=== PATIENT | male | born 1990 | race Hispanic/Latino ===

== ENCOUNTER 2021-01-31 22:03 | Emergency (ER) | payer BC, OTHER ==
[2021-02-01] MEDS ORDERED: NA CHLORIDE 0.9% 1,000 ML ONE (00:10)
[2021-02-01] MEDS ORDERED: ONDANSETRON 4 MG/2 ML VIAL ONE (00:10)
[2021-02-01] MEDS ORDERED: PANTOPRAZOLE 40 MG INJ ONE (00:10)
[2021-02-01 00:29] LABS: Basophils % 0.2 % (0-1.3); Hematocrit 42.2 % (39.6-49.0); Lymphocytes % 14.7 % (15.3-44.8); MPV 8.7 fL (7.6-11.3); RBC Red Blood Cell Count 4.99 M/uL (4.33-5.43)
[2021-02-01 00:45] LABS: Albumin 4.3 g/dL (3.4-5.0); Bilirubin Direct 0.1 mg/dL (0-0.2); Bilirubin Total 0.6 mg/dL (0.2-1.0); Potassium 3.9 mmol/L (3.5-5.1); Protein, Total 8.1 g/dL (6.4-8.2)
--- NOTE | 2021-02-01 00:53 | ER ---
Nurse's Notes [facility] Name: Cristobal Queen II Age: 30 yrs Sex: Male : 1990 Arrival Date: 01/31/2021 Time: 22:09 Bed 3 Private MD: Diagnosis: Nausea and vomiting;Diarrhea, unspecified Presentation: 01/31 22:27 Chief complaint: Patient states: N/V/Diarrhea today, feeling bloated. Coronavirus ca1 screen: Client denies travel out of the [place] in the last 14 days. diarrhea, nausea, vomiting. Client presents with at least one sign or symptom that may indicate coronavirus-19. Standard/surgical mask placed on the client. Provider contacted for isolation considerations. Ebola Screen: Patient negative for fever greater than or equal to 101.5 degrees Fahrenheit, and additional compatible Ebola Virus Disease symptoms Patient denies exposure to infectious person. Patient denies travel to an Ebola-affected area in the 21 days before illness onset. No symptoms or risks identified at this time. Initial Sepsis Screen: Does the patient meet any 2 criteria? No. Patient's initial sepsis screen is negative. Does the patient have a suspected source of infection? No. Patient's initial sepsis screen is negative. Risk Assessment: Do you want to hurt yourself or someone else? Patient reports no desire to harm self or others. Onset of symptoms was January 31, 2021. 22:27 Method Of Arrival: Ambulatory ca1 22:27 Acuity: PHILIP 3 ca1 Triage Assessment: 02/01 01:22 GI: Reports. rv Historical: - Allergies: 01/31 22:29 No Known Allergies; ca1 - Home Meds: 22:29 None [Active]; ca1 - PMHx: 22:29 None; ca1 - PSHx: 22:29 None; ca1 - Immunization history:: Flu vaccine is up to date. - Social history:: Smoking status: Patient/guardian denies using tobacco, the patient reports quitting approximately 10 years ago. Screenin/07 01:21 Abuse screen: Denies threats or abuse. Denies injuries from another. Nutritional rv screening: No deficits noted. Tuberculosis screening: No symptoms or risk factors identified. Fall Risk None identified. Assessment: 00:00 General: Appears comfortable, Behavior is calm, cooperative. rv 00:00 Pain: Denies pain. Neuro: Level of Consciousness is awake, alert, obeys commands, rv Oriented to person, place, time, situation. Cardiovascular: Patient's skin is warm and dry. Respiratory: Airway is patent Respiratory effort is even, unlabored. GI: Abdomen is flat, non-distended. Derm: Skin is intact. Vital Signs: 01/31 22:27 BP 134 / 87; Pulse 103; Resp 18 S; Temp 97.5(TE); Pulse Ox 100% on R/A; Weight 83.91 kg ca1 (R); Height 5 ft. 4 in. (162.56 cm) (R); Pain 0/10; 22:29 Pulse 96; ca1 02/01 01:00 BP 117 / 65; Pulse 89; Resp 17; Pulse Ox 100% on R/A; rv 03 22:27 Body Mass Index 31.75 (83.91 kg, 162.56 cm) ca1 ED Course: 01/31 22:09 Patient arrived in ED. bp1 22:28 Triage completed. ca1 22:29 Arm band placed on right wrist. ca1 23:21 Anthony Bartholomew, BURTON is Primary Nurse. rv 23:34 Dipika Salvador FNP-C is PHCP. kb 23:34 Tello Morales MD is Attending Physician. kb 03 00:00 Patient has correct armband on for positive identification. rv 00:00 Pulse ox on. NIBP on. rv 00:15 No provider procedures requiring assistance completed. Inserted saline lock: 20 gauge rv in left forearm, using aseptic technique. 01:21 IV discontinued, intact, bleeding controlled, No redness/swelling at site. Pressure rv dressing applied. Administered Medications: 01/31 23:56 Drug: NS 0.9% 1000 ml Route: IV; Rate: 1 bolus; Site: left forearm; rv 02/01 01:20 Follow up: IV Status: Completed infusion; IV Intake: 1000ml rv 01/31 23:56 Drug: Zofran (Ondansetron) 4 mg Route: IVP; Site: left forearm; rv 02/01 01:19 Follow up: Response: No adverse reaction rv 01/31 23:57 Drug: ProTONIX 40 mg Route: IVP; Site: left forearm; rv 02/01 01:19 Follow up: Response: No adverse reaction rv Intake: 01:20 IV: 1000ml; Total: 1000ml. rv Outcome: 00:52 Discharge ordered by MD. quezada 01:21 Discharged to home ambulatory. rv 01:21 Condition: good 01:21 Discharge instructions given to patient, Instructed on discharge instructions, follow up and referral plans. medication usage, Demonstrated understanding of instructions, follow-up care, medications, Prescriptions given X 3. 01:22 Patient left the ED. rv Signatures: Dipika Salvador, CABLE TELEVISION ACCESS COORDINATOR-C CABLE TELEVISION ACCESS COORDINATOR-Anthony Gray RN RN rv Astrid Yun RN RN ca1 Alexandrea Sch[facility]
--- NOTE | 2021-02-01 00:53 | EDPHYS ---
Physician Documentation [facility] Name: Cristobal Queen II Age: 30 yrs Sex: Male : 1990 Arrival Date: 01/31/2021 Time: 22:09 Bed 3 Private MD: ED Physician Tello Morales HPI: 02/01 00:38 This 30 yrs old Male presents to ER via Ambulatory with complaints of kb Nausea/Vomiting/Diarrhea. 00:38 The patient presents to the emergency department with nausea, vomiting, diarrhea. kb Onset: The symptoms/episode began/occurred today. Possible causes: unknown. The symptoms are aggravated by nothing. The symptoms are alleviated by nothing. Associated signs and symptoms: Pertinent positives: diarrhea, nausea, vomiting, Pertinent negatives: abdominal pain. Severity of symptoms: At their worst the symptoms were moderate in the emergency department the symptoms are unchanged. The patient has not experienced similar symptoms in the past. The patient has not recently seen a physician. 00:55 and both kids had similar symptoms. . kb Historical: - Allergies: 01/31 22:29 No Known Allergies; ca1 - Home Meds: 22:29 None [Active]; ca1 - PMHx: 22:29 None; ca1 - PSHx: 22:29 None; ca1 - Immunization history:: Flu vaccine is up to date. - Social history:: Smoking status: Patient/guardian denies using tobacco, the patient reports quitting approximately 10 years ago. ROS: 02/01 00:37 Constitutional: Negative for fever, chills, and weight loss, Cardiovascular: Negative kb for chest pain, palpitations, and edema, Respiratory: Negative for shortness of breath, cough, wheezing, and pleuritic chest pain, Back: Negative for injury and pain, MS/Extremity: Negative for injury and deformity, Skin: Negative for injury, rash, and discoloration, Neuro: Negative for headache, weakness, numbness, tingling, and seizure. Abdomen/GI: Positive for nausea, vomiting, and diarrhea. Exam: 00:37 Constitutional: This is a well developed, well nourished patient who is awake, alert, kb and in no acute distress. Head/Face: Normocephalic, atraumatic. Cardiovascular: Regular rate and rhythm with a normal S1 and S2. No gallops, murmurs, or rubs. No pulse deficits. Respiratory: Lungs have equal breath sounds bilaterally, clear to auscultation. No rales, rhonchi or wheezes noted. No increased work of breathing, no retractions or nasal flaring. Abdomen/GI: Soft, non-tender, with normal bowel sounds. No distension. No guarding or rebound. No evidence of tenderness throughout. Skin: Warm, dry with normal turgor. Normal color with no rashes, no lesions, and no evidence of cellulitis. MS/ Extremity: Pulses equal, no cyanosis. Neurovascular intact. Full, normal range of motion. Neuro: Awake and alert, GCS 15, oriented to person, place, time, and situation. Cranial nerves II-XII grossly intact. Moves all extremities. Sensory grossly intact. Cerebellar exam normal. Normal gait. Vital Signs: 01/31 22:27 BP 134 / 87; Pulse 103; Resp 18 S; Temp 97.5(TE); Pulse Ox 100% on R/A; Weight 83.91 kg ca1 (R); Height 5 ft. 4 in. (162.56 cm) (R); Pain 0/10; 22:29 Pulse 96; ca1 02/01 01:00 BP 117 / 65; Pulse 89; Resp 17; Pulse Ox 100% on R/A; rv 01/31 22:27 Body Mass Index 31.75 (83.91 kg, 162.56 cm) ca1 MDM: 01/31 23:35 Patient medically screened. kb 02/01 00:38 Data reviewed: vital signs, nurses notes. Data interpreted: Pulse oximetry: on room air kb is 100 %. Interpretation: normal. 00:50 Counseling: I had a detailed discussion with the patient and/or guardian regarding: the kb historical points, exam findings, and any diagnostic results supporting the discharge/admit diagnosis, lab results, the need for outpatient follow up, a family practitioner, to return to the emergency department if symptoms worsen or persist or if there are any questions or concerns that arise at home. 00:51 ED course: Pt has no abd pain or tenderness. Pt educated to return for worsening kb symptoms, fever, abd pain. . 03 23:35 Order name: Basic Metabolic Panel kb 01/31 23:35 Order name: CBC with Diff kb 01/31 23:35 Order name: Hepatic Function kb 01/31 23:35 Order name: Lipase kb 01/31 23:35 Order name: Basic Metabolic Panel; Complete Time: 00:48 EDMS 01/31 23:35 Order name: CBC with Automated Diff; Complete Time: 00:48 EDMS 01/31 23:35 Order name: IV Saline Lock; Complete Time: 23:50 kb 01/31 23:35 Order name: Labs collected and sent; Complete Time: 23:50 kb 01/31 23:35 Order name: Liver (Hepatic) Function; Complete Time: 00:48 EDMS 01/31 23:35 Order name: Lipase; Complete Time: 00:48 EDMS Administered Medications: 01/31 23:56 Drug: NS 0.9% 1000 ml Route: IV; Rate: 1 bolus; Site: left forearm; rv 02/01 01:20 Follow up: IV Status: Completed infusion; IV Intake: 1000ml rv 01/31 23:56 Drug: Zofran (Ondansetron) 4 mg Route: IVP; Site: left forearm; rv 02/01 01:19 Follow up: Response: No adverse reaction rv 01/31 23:57 Drug: ProTONIX 40 mg Route: IVP; Site: left forearm; rv 02/01 01:19 Follow up: Response: No adverse reaction rv Disposition: 20:10 Co-signature as Attending Physician, Tello Morales MD. [email or web address] Disposition: 02/01/21 00:52 Discharged to Home. Impression: Nausea and vomiting, Diarrhea, unspecified. - Condition is Stable. - Discharge Instructions: Food Choices to Help Relieve Diarrhea, Adult, Viral Gastroenteritis, Adult, [id number], Nausea and Vomiting, Adult, [id number]-[id number], Diarrhea, Adult, [id number]-ul-Exos. - Prescriptions for Bentyl 20 mg Oral Tablet - take 1 tablet by ORAL route every 6 hours As needed; 20 tablet. Protonix 40 mg Oral Tablet - take 1 tablet by ORAL route once daily; 30 tablet. Zofran 4 mg Oral Tablet - take 1 tablet by ORAL route every 6 hours As needed; 20 tablet. - Medication Reconciliation Form, Thank You Letter, Antibiotic Education, Prescription Opioid Use form. - Follow up: Emergency Department; When: As needed; Reason: Worsening of condition. Follow up: Private Physician; When: 2 - 3 days; Reason: Recheck today's complaints, Continuance of care, Re-evaluation by your physician. Signatures: Dispatcher [employer] EDDipika [place], AS400 PROGRAMMER-C AS400 PROGRAMMER-Ckb Anthony Bartholomew, RN Astrid Chirinos RN RN ca1 Holmes, Maurice, MD MD [email or web address] Corrections: (The following items were deleted from the chart) 01:22 00:52 02/01/2021 00:52 Discharged to Home. Impression: Nausea and vomiting; Diarrhea, rv unspecified. Condition is Stable. Discharge Instructions: Food Choices to Help Relieve Diarrhea, Adult, Viral Gastroenteritis, Adult, [id number], Nausea and Vomiting, Adult, [id number], Diarrhea, Adult, [id number]. Prescriptions for Bentyl 20 mg Oral Tablet - take 1 tablet by ORAL route every 6 hours As needed; 20 tablet, Protonix 40 mg Oral Tablet - take 1 tablet by ORAL route once daily; 30 tablet, Zofran 4 mg Oral Tablet - take 1 tablet by ORAL route every 6 hours As needed; 20 tablet. and Forms are Medication Reconciliation Form, Thank You Letter, Antibiotic Education, Prescription Opioid Use. Follow up: Emergency Department; When: As needed; Reason: Worsening of condition. Follow up: Private Physician; When: 2 - 3 days; Reason: Recheck today's complaints, Continuance of care, Re-evaluation by your physician. kb
[2021-02-01 01:27] VITALS: BP 134/87; TEMP 97.5; O2SAT 100
== END 2021-02-01 01:22 | disposition home or self-care (01) ==
LOC: ER 22:03
DX: R19.7 Diarrhea, unspecified (principal)
CPT/HCPCS: 36415; 80048; 80076; 83690; 85025; 96361; 96374; 96375; 99284